=== PATIENT | female | born 1940 | race American Indian/Alaskan Native ===

== ENCOUNTER 2017-03-28 07:25 | Day surgery (SDC) | payer MEDICARE ==
[2017-03-28 07:59] VITALS: BMI 28.7
[2017-03-28] MEDS ORDERED: Lactated Ringer's 500 ML IV SCH (08:15)
[2017-03-28] MEDS ORDERED: Propofol 10 mg/ml Inj (20 ML) ONE (09:00)
[2017-03-28] MEDS ORDERED: Lidocaine Hydrochloride 5 ML INJ ONE (09:00)
--- NOTE | 2017-03-28 09:00 | CP.SDSHP ---
Same Day Surgery H & P - History Proposed Procedure: COLONSCOPY Pre-Op Diagnosis: SEE NOTES - Previous Medical/Surgical History Cardiac: Hypertension Neuro: Backaches Misc: Other Pain: 4.Moderate Pain - Allergies Allergies: Allergies adhesive tape Allergy (Verified 03/28/17 07:59) RASH Penicillins Allergy (Verified 03/28/17 08:18) RASH - Physical Exam General Appearance: N Vital Signs: Vital Signs 03/28/17 03/28/17 03/28/17 08:05 08:18 08:33 Temperature 97.2 F L Pulse Rate 74 74 74 Respiratory 19 Rate Blood Pressure 131/72 O2 Sat by Pulse 99 Oximetry Mental Status: Alert & Oriented x3 Neuro: WNL Heart: Other Lungs: WNL GI: Other - {Optional Preform as Required} Breast: WNL Abdomen: Other Rectal: Other Integument: WNL Ortho: Other ENT: WNL - Impression Pt. Evaluated Today:Candidate for Anesthesia & Procedure: Yes - Date & Time Time: 09:01 Short Stay Discharge - Short Stay Discharge Admitting Diagnosis/Reason for Visit: RECTAL BLEEDING Disposition: HOME/ ROUTINE
[2017-03-28] MEDS ORDERED: Glucagon Recombinant 1 mg Inj ONE (09:10)
[2017-03-28 09:38] VITALS: O2SAT 100
[2017-03-28] MEDS ORDERED: Belladonna-Phenobarbital PO ONE (09:40)
[2017-03-28 10:01] VITALS: RESP 18
[2017-03-28 10:41] VITALS: BP 112/55; PULSE 64; TEMP 97
== END 2017-03-28 10:35 | disposition home or self-care (01) ==
LOC: C.ENDO 07:25
PROVIDERS: ATTEND Specialist
DX: K62.5 Hemorrhage of anus and rectum (principal); K57.30 Diverticulosis of large intestine without perforation or abscess without bleeding; K64.8 Other hemorrhoids
CPT/HCPCS: 45380; 88305; J1610; J2704; J7120

== ENCOUNTER 2018-09-27 19:36 | Emergency (ER) | payer MEDICARE ==
[2018-09-27 19:37] VITALS: BMI 28.7
[2018-09-27 20:05] VITALS: O2SAT 98
--- NOTE | 2018-09-27 21:02 | C.PDOC ---
History Of Present Illness 78 year old female presents with sinus congestion and headache pain behind the eyes for the past 3 days. She was seen at outpatient [facility] ER, had normal labs and CT done, no diagnosis made. Time Seen by Provider: 09/27/18 20:52 Chief Complaint (Nursing): Dizziness/Lightheaded History Per: Patient History/Exam Limitations: no limitations Onset/Duration Of Symptoms: Days (3) Current Symptoms Are (Timing): Still Present Seizure Or Post-ictal Symptoms: None Recent travel outside of the [place]: No Past Medical History Reviewed: Historical Data, Nursing Documentation, Vital Signs Vital Signs: Last Vital Signs Temp 98.4 F 09/27/18 20:00 Pulse 78 09/27/18 20:00 Resp 20 09/27/18 20:00 BP 180/81 H 09/27/18 20:00 Pulse Ox 98 09/27/18 20:00 - Medical History PMH: Colonic Polyps, HTN, Osteoporosis Denies: Chronic Kidney Disease Surgical History: Cholecystectomy, Endoscopy Family History: States: Unknown Family Hx - Social History Hx Alcohol Use: No Hx Substance Use: No - Immunization History Hx Tetanus Toxoid Vaccination: No Hx Influenza Vaccination: No Hx Pneumococcal Vaccination: No Review Of Systems Constitutional: Negative for: Fever, Chills ENT: Positive for: Nose Congestion Cardiovascular: Negative for: Chest Pain, Palpitations Respiratory: Negative for: Cough, Shortness of Breath Gastrointestinal: Negative for: Nausea, Vomiting Neurological: Positive for: Headache. Negative for: Weakness, Numbness Physical Exam - Physical Exam Appears: Non-toxic, No Acute Distress, Other (Mild to moderate headache pain) Skin: Normal Color, Warm Head: Atraumatic, Normacephalic Eye(s): bilateral: Normal Inspection, PERRL, EOMI Nose: Other (Mild to moderate inflamed nasal passage with kissing turbinates) Oral Mucosa: Moist Throat: Normal, No Erythema, No Exudate Neck: Normal, Supple Chest: Symmetrical, No Tenderness Cardiovascular: Rhythm Regular Respiratory: Normal Breath Sounds, No Rales, No Rhonchi, No Wheezing Gastrointestinal/Abdominal: Soft, No Tenderness Extremity: Normal ROM (x4) Neurological/Psych: Oriented x3, Normal Speech, Other (No focal deficit) ED Course And Treatment O2 Sat by Pulse Oximetry: 98 Medical Decision Making Medical Decision Making: full w/u @ [facility] ED 3 days ago no dx of sinus headache symptoms c/w sinus CORREA educated and treated for same in ED Disposition Doctor Will See Patient In The: Office Counseled Patient/Family Regarding: Studies Performed, Diagnosis - Disposition Referrals: Evans Hirsch MD [Staff Provider] - Sulaiman Chris MD [Staff Provider] - Disposition: HOME/ ROUTINE Disposition Time: 21:02 Condition: GOOD Additional Instructions: Motrin/Advil 400-600 mg every 6 hours as needed for headache pain Afrin spray to nose 5x/day as needed- for 3 days ONLY Decreases nasal passage inflammation Flonase [place]- steroid spray 1 spray to each nostril every 12 hours until Summer Claritin 10 mg in the morning decreases allergic component of nasal passage inflammation Any OTC cold/flu medicine which says "Sinus", ie, "Tylenol Cold and SINUS" will contain a nasal decongestant Follow-up w Dr. Chris/Joycelyn as needed. Instructions: Sinus Headache (DC) Forms: [employer] ([place]) - Clinical Impression Clinical Impression: Headache - Scribe Statement The provider has reviewed the documentation as recorded by the Scribe Charles Woodson All medical record entries made by the Scribe were at my direction and personally dictated by me. I have reviewed the chart and agree that the record accurately reflects my personal performance of the history, physical exam, medical decision making, and the department course for this patient. I have also personally directed, reviewed, and agree with the discharge instructions and disposition.
[2018-09-27 21:13] VITALS: BP 155/76; PULSE 76; RESP 22; TEMP 98
--- NOTE | 2018-09-30 19:33 | CARD ---
APPROVED REPORT Date of service: 09/27/2018 EKG Measurement Heart [id number] <Conclusion> Normal sinus rhythm Possible Left atrial enlargement Left ventricular hypertrophy Abnormal ECG
== END 2018-09-27 21:17 | disposition home or self-care (01) ==
LOC: C.ER 19:36
DX: R51 Headache (principal)